=== PATIENT | male | born 1940 | race Caucasian/White ===

== ENCOUNTER → 2021-02-05 | Outpatient (CLI) | payer MEDICARE ==
--- NOTE | 2021-02-05 15:56 | RAD ---
XR CHEST 2V History: Reason: CHRONIC COUGH / Spl. Instructions: / History: Comparison: None. Findings: Hyperinflation. No consolidation or pleural effusion. No pneumothorax. Right sided chest wall port. L eft-sided stimulator noted. Impression: 1. Hyperinflation. No new consolidation. Electronically signed by: Cale Ramirez DO (02/05/2021 3:54 PM) [id number]
== END ==
LOC: RAD 09:12
PROVIDERS: ATTEND Family Medicine
DX: J98.11 Atelectasis (principal)
CPT/HCPCS: 71046